=== PATIENT | female | born 1960 | race Caucasian/White ===

== ENCOUNTER 2017-09-07 16:59 | Emergency (ER) | payer OTHER, BC ==
[~2017-09-07] VITALS: Ht 175.3 cm; Wt 115.3 kg
[~2017-09-07 16:59] MED LIST: ADVIL,NUPRIN,M200 MG PO; BACTRIM,SEPT1 TABLET PO; BENADRYL ALLERG25 MG PO; FLUTICASONE PRO16 GM; HYDROCODON-ACE1 EAC7 PO; IBUPROFEN600 MG; LISINOPRIL2.5 MG PO; LISINOPRIL20 MG; METFORMIN HCL500 MG; MOTRIN800 MG PO; OCUFLOX 0.100 DROP/5 BOTH EYES; VICODIN,LORT1 TABLET PO
[2017-09-07] MEDS ORDERED: FLEXERIL10 MG PO (18:52)
[2017-09-07 19:12] VITALS: BP 147/86
== END 2017-09-07 19:13 | disposition home or self-care (01) ==
LOC: EXP 16:59 → EME 16:59 → EXP 19:13
DX: S39.012A Strain of muscle, fascia and tendon of lower back, initial encounter (principal); S29.012A Strain of muscle and tendon of back wall of thorax, initial encounter; S00.93XA Contusion of unspecified part of head, initial encounter; V49.40XA Driver injured in collision with unspecified motor vehicles in traffic accident, initial encounter; Y92.410 Unspecified street and highway as the place of occurrence of the external cause; E11.9 Type 2 diabetes mellitus without complications; Z79.84 Long term (current) use of oral hypoglycemic drugs; E78.5 Hyperlipidemia, unspecified; I10 Essential (primary) hypertension; Z88.2 Allergy status to sulfonamides
CPT/HCPCS: 70450; 72070; 72100; 99281; 99283